=== PATIENT | male | born 1980 ===

== ENCOUNTER 2020-08-07 19:37 | Emergency (ER) | payer SELFPAY ==
[~2020-08-07] VITALS: Ht 160 cm; Wt 79.4 kg
[2020-08-08] MEDS ORDERED: AUGMENTIN 875-1 EACH PO (00:28)
== END 2020-08-08 00:50 | disposition home or self-care (01) ==
LOC: ED 19:37
DX: K57.32 Diverticulitis of large intestine without perforation or abscess without bleeding (principal)
CPT/HCPCS: 74177; 80053; 81001; 85025; 99284-25; Q9967

== ENCOUNTER 2021-06-24 20:57 | Emergency (ER) | payer SELFPAY ==
[~2021-06-24] VITALS: Ht 160 cm; Wt 79.4 kg
[~2021-06-24 20:57] MED LIST: AUGMENTIN 875-1 EACH PO
[2021-06-24] MEDS ORDERED: ONDANSETRON ODT8 MG PO (23:04)
[2021-06-24] MEDS ORDERED: HYDROCODON-ACE1 EA10 PO (23:04)
[2021-06-24] MEDS ORDERED: METRONIDAZOLE500 MG PO (23:04)
[2021-06-24] MEDS ORDERED: CIPRO500 MG PO (23:04)
== END 2021-06-25 | disposition home or self-care (01) ==
LOC: ED 20:57
DX: K57.32 Diverticulitis of large intestine without perforation or abscess without bleeding (principal)
CPT/HCPCS: 36415; 74177; 80053; 81001; 85025; 96375; 99284-25; J2270; J2543; J7030; Q9967